=== PATIENT | female | born 1970 | race Two or more races ===

== ENCOUNTER → 2023-06-16 06:00 | Outpatient (CLI) | payer OTHER ==
[~2023-06-16] VITALS: Ht 152.4 cm; Wt 54.4 kg
[2023-06-16 13:43] LABS: ALBUMIN 3.7 gm/dL (3.4-5.0); BILIRUBIN TOTAL 0.17 mg/dL (0.3-1.2); CREATININE SERUM 0.52 mg/dL (0.55-1.02); GFR 123.35; GLOBULINA 3.6 G/DL (2.4-3.5); POTASSIUM 3.93 mEq/L (3.5-5.1); TOTAL PROTEIN 7.3 gm/dL (6.4-8.2)
[2023-06-16 13:44] LABS: INR 1.09; PARTIAL THROMBOPLASTIN TIME 24.5 SECONDS (22.0-34.0); PROTHROMBIN TIME 11.4 SECONDS (9.0-11.5)
== END | disposition home or self-care (01) ==
LOC: LAB 06:00 → ADM 09:30 → CIR.AMB 06-21 09:30 → EDSTATUS 06-21 09:30 → CIR.AMB 06-21 09:45
PROVIDERS: ATTEND Specialist
DX: Z01.811 Encounter for preprocedural respiratory examination (principal); Z01.812 Encounter for preprocedural laboratory examination; Z01.810 Encounter for preprocedural cardiovascular examination; K80.10 Calculus of gallbladder with chronic cholecystitis without obstruction; U07.1 COVID-19